=== PATIENT | male | born 1975 | race Caucasian/White ===

== ENCOUNTER 2021-08-16 15:31 | Emergency (ER) | payer OTHER, MEDICARE, SELFPAY ==
--- NOTE | 2021-08-16 15:35 | ECG_ITS ---
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 Measurements Intervals [place] Rate: 113 P: 53 CT: 160 QRS: 18 QRSD: 110 T: 25 QT: 300 QTc: 412 Interpretive Statements SINUS TACHYCARDIA NONSPECIFIC ST & T-WAVE ABNORMALITY ABNORMAL RHYTHM ECG INTERPRETATION BASED ON A DEFAULT AGE OF 40 YEARS No previous ECG available for comparison Electronically Signed On 08-16-2021 21:37:37 CDT by Steven Ortiz M.D. [id number]
--- NOTE | 2021-08-16 15:35 | XR_ITS ---
WS: [id number] Exam: XR chest 1V portable [id number] Date/Time of Exam: 08/16/2021 3:35 PM Reason For Exam: chest pain Comparison 02/08/2018 Findings: The lungs are clear and fully expanded. Costophrenic angles are sharp. No infiltrates. Bronchovascula r relief appears normal. Cardiac silhouette is unremarkable. Bony elements are intact. XR/XR chest 1V portable [id number] IMPRESSION: Unremarkable chest radiograph.
[2021-08-16 15:41] VITALS: BP 156/97; PULSE 110; RESP 20; TEMP 37.1; O2SAT 94; BMI 41.5
[2021-08-16 16:42] LABS: Basophils % 0.3 %; Eosinophils # 0.1 10^3/uL (0.0-0.8); Eosinophils % 0.7 %; Hematocrit 47.4 % (42.0-52.0); Hemoglobin 16.5 g/dL (11.7-16.6); Lymphocytes # 1.8 10^3/uL (0.8-4.8); Lymphocytes % 19.9 %; Mean Corpuscular HGB Conc 34.8 g/dL (30.0-36.0); Mean Corpuscular Hemoglobin 29.9 pg (28.0-34.0); Mean Corpuscular Volume 85.9 fl (80-94); Mean Platelet Volume 10.4 fL (7.4-10.4); Monocytes # 0.5 10^3/uL (0.2-0.9); Neutrophils # 6.76 10^3/uL (1.8-7.7); Neutrophils % 73.9 %; Nucleated Red Blood Cells % 0 %; Platelet Count 206 10^3/cmm (130-400); Red Blood Count 5.52 10^6/uL (4.1-5.3); Red Cell Distribution Width 13.2 % (12.1-15.1); White Blood Count 9.2 10^3/uL (4.0-10.0)
[2021-08-16 17:09] LABS: Troponin(5th) Baseline 6 ng/L (0-15)
--- NOTE | 2021-08-16 17:14 | ED_ITS ---
HPI - Arrhythmia/Palpitations General: Chief Complaint: Arrhythmia/Palpitations Stated Complaint: RACING HR: [facility] Time Seen by Provider: 08/16/21 16:08 History of Present Illness: HPI narrative: Patient is a 46-year-old male who comes to the ED with palpitations. Patient says for the past couple weeks he has been having episodes of a rapid heart rate according to his apple watch. Says he will be up ambulating and has an episode of elevated heart rate anywhere from the 130s to 150s. Symptoms usually start when he is feeling really hot. Patient says that 3 days ago he was outside and sweating quite a bit. Today he was in the shower and when he got out he notices apple watch showed a heart rate of 150s to 160s and he was feeling a little lightheaded. [facility] to come here to the ED for further evaluation. Denies any shortness of breath, chest pain, abdominal pain, nausea/vomiting, bladder or bowel symptoms. Associated symptoms: Deny nausea or vomiting Review of Systems Const: Denies: fever(s), chills or fatigue Eyes: Denies: change in vision or eye discomfort ENMT: Denies: throat pain, odynophagia, nasal discharge or nasal congestion Card: Reports: palpitations and lightheadedness; Denies: chest pain, edema, swelling of feet/ankles, dyspnea on exertion or orthopnea Resp: Denies: dyspnea, productive cough or non-productive cough GI: Denies: abdominal pain, nausea, vomiting, diarrhea, constipation or hematochezia : Denies: flank pain, difficulty urinating, dysuria or hematuria Musc: Denies: neck pain, back pain or extremity swelling Skin/Breast: Denies: rash or new lesions Neuro: Denies: headache(s), numbness in extremities or weakness in extremities Physical Exam Const: COMMON NORMALS: patient oriented x3 HENMT: COMMON NORMALS: normocephalic HEAD & SCALP: normocephalic MOUTH: Normal oral and palatal mucosa present THROAT: posterior oropharynx normal and uvula midline Neck/C-Spine: COMMON NORMALS: supple GENERAL: Yes normal visual inspection Resp: COMMON NORMALS: normal respiratory effort, No retractions, No use of accessory muscles and clear to auscultation bilaterally AUSCULTATION: clear to auscultation bilaterally Cardio: COMMON NORMALS: regular rate, regular rhythm, S1 normal heart sound present, S2 normal heart sound present, No gallops present (Cardio), No clicks present (Cardio), No murmurs present (Cardio) and Peripheral pulses 2+ throughout RATE: regular rate RHYTHM: regular rhythm HEART SOUNDS: S1 normal heart sound present and S2 normal heart sound present PERIPHERAL PULSES: Peripheral pulses 2+ throughout GI: COMMON NORMALS: Normal to inspection, nondistended, normoactive bowel sounds present, Soft to palpation, non-tender and no masses PALPATION: Yes Soft to palpation : COMMON NORMALS: Yes no CVA tenderness BLADDER/KIDNEY EXAM: Yes no CVA tenderness Back/Pelvis: COMMON NORMALS: no CVA tenderness Extremity: COMMON NORMALS: normal to inspection Neuro: COMMON NORMALS: patient oriented x3 and moves all extremities Skin: GENERAL SKIN EXAM: dry skin Course Reevaluation(s): Reevaluation #1: After patient received IV fluids he says his symptoms improved. He is able to stand up and not have any increase in heart rate. Patient feels back to baseline. Time: 19:05 Vital Signs: Vital signs: Vital Signs Temperature 98.7 F 08/16/21 15:41 Pulse Rate 89 08/16/21 20:20 Respiratory Rate 22 H 08/16/21 20:20 Blood Pressure 149/101 08/16/21 20:20 Pulse Oximetry 98 08/16/21 20:20 MDM - Arrhythmia/Palpitations MDM Narrative: Medical decision making narrative: Patient is a 46-year-old male comes to the ED with palpitations. Patient has been having episodes of palpitations for the past couple weeks. Says he was getting out of the shower late this afternoon and noticed his apple watch said his heart rate was around 150s. Denies any chest pain or shortness of breath. Exam is benign and patient appears healthy and in no acute distress or pain. CBC, CMP were unremarkable. Chest x-ray showed no acute findings. TSH normal, D-dimer normal and troponins were negative. First EKG showed some sinus tachycardia with [address] segment elevation or depression seen. No arrhythmia seen on EKG. After patient received 1 L of IV fluids his heart rate went down to the 70-90 range. Patient says he was feeling better after the IV fluids. Patient was diagnosed with palpitations and discharged home. He was told to follow-up with his PCP in 5 to 7 days for reevaluation. Return to ED precautions given. Patient understood agree with plan. Lab Data: Attestation: I reviewed the patient's lab results. Labs: Lab Results 08/16/21 08/16/21 08/16/21 16:30 16:30 16:30 WBC 9.2 10^3/uL 10^3/ uL (4.0-10.0) RBC 5.52 10^6/uL H 10 ^6/uL (4.1-5.3) Hgb 16.5 g/dL g/dL (11.7-16.6) Hct 47.4 % % (42.0-52.0) MCV 85.9 fl fl (80-94) MCH 29.9 pg pg (28.0-34.0) MCHC 34.8 g/dL g/dL (30.0-36.0) RDW 13.2 % % (12.1-15.1) Plt Count 206 10^3/cmm 10^3 /cmm (130-400) MPV 10.4 fL fL (7.4-10.4) Neut % (Auto) 73.9 % % Lymph % (Auto) 19.9 % % Divide % (Auto) 5.0 % % Eos % (Auto) 0.7 % % Baso % (Auto) 0.3 % % Neut # (Auto) 6.76 10^3/uL 10^3 /uL (1.8-7.7) Lymph # (Auto) 1.8 10^3/uL 10^3/ uL (0.8-4.8) Divide # (Auto) 0.5 10^3/uL 10^3/ uL (0.2-0.9) Eos # (Auto) 0.1 10^3/uL 10^3/ uL (0.0-0.8) Baso # (Auto) 0.0 10^3/uL 10^3/ uL (0.0-0.1) Nucleated RBC % (a uto) 0 % % Nucleated RBCs # 0.0 /100WBC /100W BC D-Dimer Sodium 138 mmol/L mmol/L (136-145) Potassium 3.9 mmol/L mmol/L (3.5-5.1) Chloride 104 mmol/L mmol/L (98-107) Carbon Dioxide 23 mmol/L mmol/L (22-29) Anion Gap 14.9 (5-19) BUN 16 mg/dL mg/dL (6-20) Creatinine 0.6 mg/dL L mg/dL (0.7-1.2) GFR Calculation 145.7 mL/min H mL /min (90-130) Glucose 103 mg/dL mg/dL (65-115) Calculated Osmolal ity 287 mOsm/kg mOsm/ kg (285-295) Calcium 9.1 mg/dL mg/dL (8.5-10.5) Total Bilirubin 0.7 mg/dL mg/dL (0.15-1.2) AST 16 U/L U/L (0-40) ALT 24 U/L U/L (0-41) Alkaline Phosphata se 84 IU/L IU/L (40-130) Troponin T Baselin e 6 ng/L ng/L (0-15) Troponin T 120 Min nez perce Delta Troponin T Total Protein 7.8 g/dL g/dL (6.6-8.7) Albumin 4.6 g/dL g/dL (3.5-5.2) Globulin 3.2 g/dL g/dL (1.3-4.6) TSH 1.48 uIU/mL uIU/m L (0.27-4.20) 08/16/21 08/16/21 16:30 19:05 WBC RBC Hgb Hct MCV MCH MCHC RDW Plt Count MPV Neut % (Auto) Lymph % (Auto) Divide % (Auto) Eos % (Auto) Baso % (Auto) Neut # (Auto) Lymph # (Auto) Divide # (Auto) Eos # (Auto) Baso # (Auto) Nucleated RBC % (a uto) Nucleated RBCs # D-Dimer 0.33 ug/mIFEU ug/ mIFEU (0-0.59) Sodium Potassium Chloride Carbon Dioxide Anion Gap BUN Creatinine GFR Calculation Glucose Calculated Osmolal ity Calcium Total Bilirubin AST ALT Alkaline Phosphata se Troponin T Baselin e Troponin T 120 Min nez perce 6.17 ng/L ng/L (0-15) Delta Troponin T 0.17 ABS# ABS# (0-10) Total Protein Albumin Globulin TSH Imaging Data^: CXR: Attestation: I personally reviewed and interpreted this imaging study as follows: Radiologist's impression: [address] [place] [address] XRay Report Signed Patient: Jeff Floyd Unit #: [id number] : 1975 Age/Sex: 46 / M ADM Date: 08/16/21 Loc: ER Room/Bed: Attending Dr: Ordering Provider/Ordering MD: Asha Vidal Date of Service: 08/16/21 Procedure(s): XR chest 1V portable [id number] Accession Number(s): [id number] Report Number: [id number] WS: [id number] Exam: XR chest 1V portable [id number] Date/Time of Exam: 08/16/2021 3:35 PM Reason For Exam: chest pain Comparison 02/08/2018 Findings: The lungs are clear and fully expanded. Costophrenic angles are sharp. No infiltrates. Bronchovascular relief appears normal. Cardiac silhouette is unremarkable. Bony elements are intact. XR/XR chest 1V portable [id number] IMPRESSION: Unremarkable chest radiograph. Dictated By: Angel Camacho DO Signed By: Angel Camacho DO Signed Date/Time: 08/16/21 1600 DD/ 1600 EKG Data^: EKG 1: Attestation: I personally reviewed and interpreted this EKG as follows: EKG interpretation date: 08/16/21 Interpretation: Sinus rhythm, 97 bpm, no ST segment elevation or depression seen. Other EKG comments: Chest X-Ray 08/16/21 15:35 IMPRESSION: Unremarkable chest radiograph. EKG 2: Attestation: I personally reviewed and interpreted this EKG as follows: EKG interpretation date: 08/16/21 EKG interpretation time: 19:05 Interpretation: Sinus rhythm, 71 bpm, no ST segment elevation or depression seen. Other EKG comments: Chest X-Ray 08/16/21 15:35 IMPRESSION: Unremarkable chest radiograph. Discharge Plan Discharge Patient Disposition: Home Clinical Impression: Palpitations Condition: Stable Discharge Orders: Discharge ED (Routine); Ordered 08/16/21 Ordered By: Leonides Nobles Referrals: Nina Stinson FNP [Primary Care Provider] - Discharge Diet: Regular Discharge Activity: Resume usual activity Patient Instructions: Palpitations (ED) Activity Restrictions/Additional Instructions: Follow-up with medical provider as directed in 7 to 10 days reevaluation. Continue taking all home medications as previously prescribed. Drink plenty of fluids and stay hydrated. Return to the ER or your medical provider if condition worsens. Please read and understand discharge instructions. Thank you for choosing [facility] for your healthcare needs today. Please realize this is an emergency room and that we are providing you with a medical screening exam and this may not be complete and all inclusive of all the testing and or work up that you may need to determine your ailment or severity of your illness. It is very important that you follow up as instructed or that you return to the Emergency Department should you have concerns or if your condition changes or worsens in any way. Coding Level of Care Code ED 3Rd Mate for Antonio Penn Exam Comprehensive
[2021-08-16 17:20] VITALS: BP 155/90; PULSE 114; RESP 24; O2SAT 100
[2021-08-16 17:32] LABS: Alanine Aminotransferase 24 U/L (0-41); Albumin Level 4.6 g/dL (3.5-5.2); Alkaline Phosphatase 84 IU/L (40-130); Aspartate Amino Transferase 16 U/L (0-40); Blood Urea Nitrogen 16 mg/dL (6-20); Calcium 9.1 mg/dL (8.5-10.5); Carbon Dioxide 23 mmol/L (22-29); Chloride 104 mmol/L (98-107); Globulin 3.2 g/dL (1.3-4.6); Glomerular Filtration Rate 145.7 mL/min (90-130); Glucose 103 mg/dL (65-115); Osmolality Calculated 287 mOsm/kg (285-295); Sodium 138 mmol/L (136-145); Thyroid Stimulating Hormone 1.48 uIU/mL (0.27-4.20); Total Bilirubin 0.7 mg/dL (0.15-1.2); Total Protein 7.8 g/dL (6.6-8.7)
[2021-08-16 17:33] LABS: Anion Gap 14.9 (5-19); Potassium 3.9 mmol/L (3.5-5.1)
--- NOTE | 2021-08-16 17:35 | ECG_ITS ---
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 Measurements Intervals [place] Rate: 97 P: 47 MO: 168 QRS: 22 QRSD: 102 T: 11 QT: 324 QTc: 412 Interpretive Statements SINUS RHYTHM LOW QRS VOLTAGE IN PRECORDIAL LEADS [QRS DEFLECTION < 1.0 mV IN CHEST LEADS] NONSPECIFIC T-WAVE ABNORMALITY Compared to ECG 08/16/2021 15:50:16 Low QRS voltage now present Sinus tachycardia no longer present T-wave abnormality still present Electronically Signed On 08-16-2021 21:53:04 CDT by Steven Ortiz M.D. [email or web address] [email or web address] Geniethe [email or web address] [email or web address].[employer]/store/OM/[id number]
[2021-08-16 18:00] VITALS: BP 117/81; BP 132/59; BP 133/101; BP 133/102; PULSE 107; PULSE 108; PULSE 85; RESP 15; O2SAT 98
[2021-08-16] MEDS: sodium chloride 0.9% 1,000 ML 999 ML IV (18:33)
[2021-08-16 19:28] LABS: D Dimer 0.33 ug/mIFEU (0-0.59)
[2021-08-16 19:40] LABS: Troponin 5 2HR 6.17 ng/L (0-15); Troponin 5 2HR Delta 0.17 ABS# (0-10)
[2021-08-16 20:20] VITALS: BP 149/101; PULSE 89; RESP 22; O2SAT 98
--- NOTE | 2021-08-16 21:35 | ECG_ITS ---
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 Measurements Intervals [place] Rate: 71 P: 47 OR: 173 QRS: 36 QRSD: 98 T: 37 QT: 372 QTc: 405 Interpretive Statements SINUS RHYTHM Compared to ECG 08/16/2021 17:36:45 T-wave abnormality no longer present Electronically Signed On 08-16-2021 21:53:37 CDT by Steven Ortiz M.D. [email or web address]/[id number]
== END 2021-08-16 20:20 | disposition home or self-care (01) ==
PROVIDERS: Physician Assistant; Emergency Provider Physician Assistant; PCP Nurse Practitioner
DX: R00.2 Palpitations (principal)
CPT/HCPCS: 71045; 80053; 84443; 84484; 85025; 85378; 93005; 96360; 99284; J7030

== ENCOUNTER 2021-12-29 12:56 | Outpatient (CLI) | payer OTHER, SELFPAY ==
--- NOTE | 2021-12-29 13:30 | USCV_ITS ---
Jeff Floyd Age: 46 Gender: M : 1975 Exam Date: 12/29/2021 13:21 Ordering Phys: Steven Ortiz MD ([email or web address]) Technologist: ROSINA [place] [facility] [place]: dyspnea with intermitent tachycardia x 5 months. No hx cardiac intervention. BP: 130 / 82 HR: 0 Rhythm: Sinus Technical Quality: Adequate MEASUREMENTS (Male / Female) Normal Values 2D ECHO LV Diastolic Diameter PLAX 4.0 cm 4.2 - 5.9 / 3.9 - 5.3 cm LV Systolic Diameter PLAX 2.9 cm IVS Diastolic Thickness 1.4 cm 0.6 - 1.0 / 0.6 - 0.9 cm IVS Systolic Thickness 1.7 cm LVPW Diastolic Thickness 1.2 cm 0.6 - 1.0 / 0.6 - 0.9 cm LVPW Systolic Thickness 1.9 cm LVOT Diameter 2.1 cm LV Ejection Fraction 2D Teich 55.1 % LV Ejection Fraction MOD 2C 68.3 % LV Ejection Fraction 2C AL 72.5 % LA Diameter 4.3 cm LA Width 3.8 cm LA Height 5.3 cm RA Width 2.7 cm RA Height 5.1 cm Aorta at Sinotubular Diameter 3.6 cm M-MODE Aortic Annulus Diameter 3.8 cm LA Ao Ratio MM 1.1 MV E Point Septal Separation 0.3 cm DOPPLER AV Peak Velocity 109.0 cm/s LVOT Peak Velocity 60.0 cm/s AV Area Cont Eq vti 2.6 cm squared AV Area Cont Eq pk 2.0 cm squared MV Peak Velocity 95.0 cm/s MV Area PHT 4.5 cm squared Mitral E to A Ratio 0.8 MV E' Velocity 31.0 cm/s Mitral E to MV E' Ratio 10.3 Mitral E to LV E' Lateral Ratio 9.0 Mitral E to LV E' Septal Ratio 12.1 TR Peak Velocity 246.0 cm/s TR Peak Gradient 24.2 mmHg TV Peak E Velocity 72.0 cm/s Right Atrial Pressure 5.0 mmHg Pulmonary Artery Systolic Pressu 29.2 mmHg PV Peak Velocity 89.0 cm/s FINDINGS Left Ventricle Normal left ventricular size. LV systolic function is normal with EF of 55-60%. No regional wall motion abnormalities. Grade 1 diastolic dysfunction Right Ventricle The right ventricle is normal in size and function. Right Atrium The right atrium is normal in size. Left Atrium The left atrium is normal in size. Mitral Valve Structurally normal mitral valve without significant stenosis or prolapse. There is no mitral regurgitation. Aortic Valve Structurally normal aortic valve without significant sclerosis or stenosis. There is no aortic regurgitation. Tricuspid Valve Structurally normal tricuspid valve without significant stenosis or regurgitation. Pulmonary artery systolic pressure is normal. Pulmonic Valve Structurally normal pulmonic valve without significant stenosis. There is no pulmonic regurgitation. Pericardium Normal pericardium without effusion. Aorta Normal ascending aorta dimension. CONCLUSIONS LV systolic function is normal with EF of 55-60% Grade 1 diastolic dysfunction No significant valvular heart disease noted No comparison studies are available Pineda Bess MD (Electronically Signed) Final Date: 09 January 2022 09:33 S
== END 2021-12-29 12:57 | disposition home or self-care (01) ==
LOC: RAD 13:04
PROVIDERS: PCP Nurse Practitioner; Visit Provider Internal Medicine Cardiovascular Disease
DX: R00.0 Tachycardia, unspecified (principal); R06.00 Dyspnea, unspecified
CPT/HCPCS: 93306

== ENCOUNTER → 2022-02-05 15:02 | Outpatient (BNVA) | payer OTHER, SELFPAY | PROVIDERS: PCP Nurse Practitioner; Visit Provider Internal Medicine Cardiovascular Disease | DX: R00.0 Tachycardia, unspecified (principal); R06.00 Dyspnea, unspecified; R55 Syncope and collapse | CPT/HCPCS: 99214 ==

== ENCOUNTER → 2022-02-16 10:59 | Outpatient (BNVA) | payer OTHER, SELFPAY | PROVIDERS: PCP Nurse Practitioner; Visit Provider Internal Medicine Critical Care Medicine | DX: J45.909 Unspecified asthma, uncomplicated (principal); R09.82 Postnasal drip; R06.02 Shortness of breath; G47.30 Sleep apnea, unspecified; Z87.891 Personal history of nicotine dependence | CPT/HCPCS: 82785; 86003; 99204 ==

== ENCOUNTER → 2022-02-28 08:20 | Outpatient (BNVA) | payer OTHER, SELFPAY | PROVIDERS: PCP Nurse Practitioner; Referring Provider Audiologist; Visit Provider Otolaryngology | DX: H93.13 Tinnitus, bilateral (principal); H91.93 Unspecified hearing loss, bilateral; Z87.891 Personal history of nicotine dependence | CPT/HCPCS: 99203 ==

== ENCOUNTER → 2022-05-11 10:35 | Outpatient (BNVA) | payer OTHER, SELFPAY | PROVIDERS: PCP Nurse Practitioner; Visit Provider Otolaryngology | DX: H90.0 Conductive hearing loss, bilateral (principal); H93.13 Tinnitus, bilateral; Z87.891 Personal history of nicotine dependence | CPT/HCPCS: 99213 ==

== ENCOUNTER → 2022-06-27 12:41 | Outpatient (BNVA) | payer OTHER, SELFPAY | PROVIDERS: PCP Nurse Practitioner; Visit Provider Nurse Practitioner Family | DX: I10 Essential (primary) hypertension (principal); Z87.891 Personal history of nicotine dependence | CPT/HCPCS: 99213 ==

== ENCOUNTER → 2022-12-31 09:42 | Outpatient (BNVA) | payer OTHER, SELFPAY | PROVIDERS: PCP Nurse Practitioner; Visit Provider Internal Medicine Pulmonary Disease | DX: J45.909 Unspecified asthma, uncomplicated (principal); R05.3 Chronic cough; R09.82 Postnasal drip; G47.30 Sleep apnea, unspecified; R61 Generalized hyperhidrosis; Z82.49 Family history of ischemic heart disease and other diseases of the circulatory system; Z87.891 Personal history of nicotine dependence | CPT/HCPCS: 99214 ==

== ENCOUNTER 2023-02-11 09:04 | Outpatient (CLI) | payer OTHER, SELFPAY ==
[2023-02-11 10:02] VITALS: BMI 40.7
--- NOTE | 2023-02-11 10:04 | ECG_ITS ---
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 Interpretive Statements NAME OF STUDY: EXERCISE SESTAMIBI STRESS TEST INDICATION: [sp/sob, ] EXERCISE DATA: The patient was exercised by Larry protocol. Baseline heart rate was 57 beats per minute. Baseline blood pressure was 134/96 millimeters of mercury. Target heart rate was 148 beats per minute. Maximum heart rate achieved was 153, which was 103% of the target heart rate. Maximum blood pressure was 196/103 millimeters of mercury. Total exercise time was 9 minutes and 59 secnods. Maximum METs achieved was 12.3. The reason for ending the test was completion of the protocol. The patient complained of shortness of breath during the stress test, which then resolved at the end of the test. ELECTROCARDIOGRAM: BASELINE: Showed sinus rhythm, normal axis, no significant ST-T changes at the baseline noted. [] EXERCISE: At the peak exercise level, [] No significant ST-T changes suggestive of ischemia noted. [] RECOVERY: During the recovery period, heart rate dropped appropriately. No significant ST-T changes in the recovery suggestive of ischemia noted. [] CONCLUSION: 1. Exercise capacity excellent. 2. Heart rate response was appropriate. 3. Blood pressure response was appropriate. 4. Symptoms not suggestive of ischemia. 5. Electrocardiogram portion of the stress test was not suggestive of ischemia. 6. Nuclear scan will be documented separately. Electronically Signed On 02-24-2023 15:27:52 CDT by Pineda Bess M.D. [email or web address]/store/OM/[id number]
--- NOTE | 2023-02-11 10:04 | NMCV_ITS ---
NM xi perf SPECT r/s* [id number] Jeff Floyd Age: 47 Gender: M : 1975 Exam Date: 02/11/2023 10:44 Ordering Phys: Naveed Dalal MD Technologist: SHEELA Lama Exam Location: [facility] Indications: CHEST PAIN; SHORTNESS OF BREATH STRESS TEST Please see separate stress test report in [facility] for full findings IMAGE PROTOCOL Rest/Stress 1 Exercise Day Radiopharmaceutical Dose (mCi) Administration Site Administered by Rest: Tc-99m 10.5 IV SHEELA Wheeler Sestamibi Stress:Tc-99m 32.7 IV SHEELA Wheeler Sestamibi Rest: 11-Feb-2023 60 Discovery 630 Stress: 11-Feb-2023 30 Discovery 630 Radiopharmaceutical was injected at 86 % maximum heart rate. Images obtained in supine and prone position. SPECT RESULTS Technical Quality: Excellent Raw Data Analysis: Normal Image Corrections: No attenuation or motion correction applied Summed Stress Score: 3 Summed Rest Score: 5 Summed Difference Score: 0 PERFUSION FINDINGS There is a small sized, fixed perfusion defect noted in the lateral wall. This is consistent with small sized prior infarct noted in the left circumflex artery territory. FUNCTIONAL RESULTS (calculated via Gated SPECT) Stress Image LV EF (%): 73 Stress EDV (mL):99 TID: 0.78 Stress ESV (mL):27 FUNCTIONAL FINDINGS: There is normal left ventricular systolic function. IMPRESSIONS 1. 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 No evidence of ischemia 2. LV systolic function is normal Pineda Bess MD (Electronically Signed) Final Date: 15 February 2023 16:52 S
[2023-02-11 11:56] VITALS: BP 149/81; PULSE 97
== END 2023-02-11 09:05 | disposition home or self-care (01) ==
LOC: CDL 09:09
PROVIDERS: PCP Nurse Practitioner; Visit Provider Internal Medicine Pulmonary Disease
DX: R07.9 Chest pain, unspecified (principal); R06.02 Shortness of breath
CPT/HCPCS: 36415; 78452; 93017; A9500

== ENCOUNTER → 2023-03-11 10:54 | Outpatient (BNVA) | payer OTHER, SELFPAY | PROVIDERS: PCP Nurse Practitioner; Visit Provider Specialist | DX: I10 Essential (primary) hypertension (principal); R00.0 Tachycardia, unspecified; R07.9 Chest pain, unspecified; E66.9 Obesity, unspecified; Z68.41 Body mass index [BMI] 40.0-44.9, adult; Z87.891 Personal history of nicotine dependence | CPT/HCPCS: 99214 ==

== ENCOUNTER → 2023-04-04 12:56 | Outpatient (BNVA) | payer OTHER, SELFPAY | PROVIDERS: PCP Nurse Practitioner; Visit Provider Internal Medicine Pulmonary Disease | DX: J45.909 Unspecified asthma, uncomplicated (principal); R05.3 Chronic cough; R09.82 Postnasal drip; G47.30 Sleep apnea, unspecified; R61 Generalized hyperhidrosis; Z87.891 Personal history of nicotine dependence; R00.0 Tachycardia, unspecified; R11.0 Nausea; Z82.49 Family history of ischemic heart disease and other diseases of the circulatory system | CPT/HCPCS: 99214 ==

== ENCOUNTER → 2023-07-16 13:57 | Outpatient (BNVA) | payer OTHER, SELFPAY | PROVIDERS: PCP Nurse Practitioner; Visit Provider Internal Medicine Cardiovascular Disease | DX: R00.0 Tachycardia, unspecified (principal); R42 Dizziness and giddiness; R94.31 Abnormal electrocardiogram [ECG] [EKG]; I10 Essential (primary) hypertension; Z87.891 Personal history of nicotine dependence | CPT/HCPCS: 99214 ==

== ENCOUNTER 2023-08-20 08:07 | Outpatient (CLI) | payer OTHER, SELFPAY ==
--- NOTE | 2023-08-20 08:21 | US_ITS ---
WS: [id number] ULTRASOUND ABDOMEN LIMITED CLINICAL INFORMATION: ELEVATED LIVER ENZYMES COMPARISON: None. FINDINGS: Liver Size: Enlarged craniocaudal length: 18.0 cm. Echogenicity: Coarse Surface nodularity: None. Mass (size and location): None. Bile ducts Intrahepatic ducts: Normal. Common bile duct diameter: 0.3 cm. Gallbladder Normal. Gallstones: None. Gallbladder sludge: None. Gallbladder wall thickening: None. Pericholecystic fluid: None. Sonographic Lord sign: Absent. Pancreas Not well visualized Right kidney: Normal. Hydronephrosis: None. Size: 10.6 cm x 5.7 cm x 6.0 cm. Abdominal aorta and IVC Visualized portions are normal. Ascites: None. IMPRESSION: 1. Hepatomegaly with diffuse fatty filtration. 2. Gallbladder appears normal. 3. No gallbladder wall thickening or pericholecystic fluid. 4. Normal common bile duct. 5. No hydronephrosis in the RIGHT kidney.
== END 2023-08-20 08:08 | disposition home or self-care (01) ==
PROVIDERS: PCP Nurse Practitioner; Visit Provider Nurse Practitioner
DX: R74.8 Abnormal levels of other serum enzymes (principal); K76.0 Fatty (change of) liver, not elsewhere classified
CPT/HCPCS: 76705

== ENCOUNTER → 2024-01-20 10:34 | Outpatient (BNVA) | payer OTHER, SELFPAY | PROVIDERS: PCP Nurse Practitioner; Visit Provider Nurse Practitioner Family | DX: I10 Essential (primary) hypertension (principal); R00.0 Tachycardia, unspecified; Z87.891 Personal history of nicotine dependence; I45.9 Conduction disorder, unspecified | CPT/HCPCS: 93005; 99214 ==

== ENCOUNTER → 2024-04-24 09:12 | Outpatient (BNVA) | payer OTHER, SELFPAY | PROVIDERS: PCP Nurse Practitioner; Visit Provider Internal Medicine Pulmonary Disease | DX: J45.909 Unspecified asthma, uncomplicated (principal); R05.3 Chronic cough; R09.82 Postnasal drip; G47.30 Sleep apnea, unspecified; R61 Generalized hyperhidrosis; Z87.891 Personal history of nicotine dependence | CPT/HCPCS: 99214 ==

== ENCOUNTER → 2024-04-29 14:08 | Outpatient (BNVA) | payer OTHER, SELFPAY | PROVIDERS: PCP Nurse Practitioner; Visit Provider Internal Medicine | DX: R00.0 Tachycardia, unspecified (principal); R42 Dizziness and giddiness; R07.89 Other chest pain; R94.31 Abnormal electrocardiogram [ECG] [EKG]; G47.30 Sleep apnea, unspecified; I10 Essential (primary) hypertension; G43.909 Migraine, unspecified, not intractable, without status migrainosus; Z87.891 Personal history of nicotine dependence | CPT/HCPCS: 99214 ==

== ENCOUNTER 2025-02-16 14:42 | Oncology outpatient (recurring) (ONCR) | payer OTHER, SELFPAY ==
[2025-02-16 15:37] LABS: Basophils % 0.4 %; Eosinophils # 0.2 10^3/uL (0.0-0.8); Hematocrit 42.9 % (37-53); Lymphocytes # 1.5 10^3/uL (0.8-4.8); Mean Corpuscular HGB Conc 32.2 g/dL (30-55); Mean Corpuscular Volume 93.3 fl (82-101); Mean Platelet Volume 11.9 fL (7.4-10.4); Monocytes # 0.3 10^3/uL (0.2-0.9); Monocytes % 4.4 %; Neutrophils # 5.36 10^3/uL (1.8-7.7); Neutrophils % 72.9 %; Nucleated Red Blood Cells % 0 %; Platelet Count 141 10^3/cmm (157-399); Red Cell Distribution Width 12.8 % (12.1-15.1); White Blood Count 7.35 10^3/uL (3.29-11.43)
== END 2025-03-17 23:59 | disposition home or self-care (01) ==
LOC: ONCMED 14:42
PROVIDERS: PCP Nurse Practitioner; Visit Provider Internal Medicine Medical Oncology
DX: D69.6 Thrombocytopenia, unspecified (principal); Z87.891 Personal history of nicotine dependence
CPT/HCPCS: 36415; 85025; 99205

== ENCOUNTER → 2025-11-02 10:04 | Outpatient (BNVA) | payer OTHER, SELFPAY | PROVIDERS: PCP Nurse Practitioner; Visit Provider Surgery | DX: K64.8 Other hemorrhoids (principal) | CPT/HCPCS: 99204 ==